=== PATIENT | female | born 1995 | race Caucasian/White ===

== ENCOUNTER 2016-12-27 10:05 | Emergency (ER) | payer SELFPAY ==
[~2016-12-27] VITALS: Ht 162.6 cm; Wt 43.0 kg
[2016-12-27 11:09] LABS: HEMATOCRIT 35.1 % (36.0-46.0); MCHC 32.8 G/DL (30.0-36.0); MCV 85.4 FL (83-99); MEAN PLAT.VOLUME 10.1 uM^3 (9.5-12.4); PLATELET COUNT 187 K/uL (156-360); RBC DIS.WIDTH-CV 14.4 % (11.8-14.6); RBC DIS.WIDTH-SD 45.1 % (39-53); RED BLOOD COUNT 4.11 M/uL (3.80-5.20); WHITE BLOOD COUNT 6.2 K/uL (4.1-10.2)
[2016-12-27 11:22] LABS: CHLORIDE 104 mEq/L (99-109); POTASSIUM 3.8 mEq/L (3.7-5.4); SODIUM 139 mEq/L (136-147)
[2016-12-27 11:24] LABS: GLUCOSE 90 mg/dL (70-99)
[2016-12-27 11:26] LABS: ANION GAP 12 MEQ/L (2-14); TOTAL BILIRUBIN 0.6 mg/dL (0.0-1.0)
[2016-12-27 11:28] LABS: ALKALINE PHOSPHATASE 79 IU/L (3-129); GFR ESTIMATE (CALCULATED) > 59 mL/min/
[2016-12-27 11:29] LABS: UREA NITROGEN (BUN) 14 mg/dL (9-23)
[2016-12-27 11:31] LABS: LIPASE 14 U/L (1.0-51.0)
[2016-12-27 11:38] LABS: QUANTITATIVE HCG < 4.0 MIU/ML
[2016-12-27 12:46] LABS: ADD MIUA? YES; BILIRUBIN NEGATIVE; BLOOD NEGATIVE; COLOR YELLOW ((YELLOW)); GLUCOSE (STRIP) NEGATIVE; KETONES 5; LEUKOCYTES NEGATIVE; NITRITE NEGATIVE; PROTEIN (STRIP) 30; SPECIFIC GRAVITY 1.025 (1.000-1.030)
[2016-12-27] MEDS ORDERED: ULTRAM50 MG PO (12:48)
[2016-12-27] MEDS ORDERED: ZOFRAN ODT4 MG PO (12:48)
[2016-12-27 12:52] LABS: BACTERIA RARE /HPF; CALCIUM OXALATE CRYSTALS 2+ /HPF; EPITHELIAL CELLS 1+ /HPF; MUCUS 1+ /LPF; RED BLOOD CELLS 0-5 /HPF (0-5)
[2016-12-27 13:17] VITALS: BP 99/59
== END 2016-12-27 13:18 | disposition home or self-care (01) ==
LOC: EME 10:05
PROVIDERS: Nurse Practitioner Family
DX: N83.201 Unspecified ovarian cyst, right side (principal); R11.2 Nausea with vomiting, unspecified; L50.0 Allergic urticaria; T50.8X5A Adverse effect of diagnostic agents, initial encounter; F17.200 Nicotine dependence, unspecified, uncomplicated
CPT/HCPCS: 74177; 80053; 81003; 83690; 84702; 85027; 99281; 99285; J1200; J2270; J2405; J7030

== ENCOUNTER 2017-11-07 15:13 | Emergency (ER) | payer SELFPAY ==
[~2017-11-07] VITALS: Ht 162.6 cm; Wt 44.6 kg
[~2017-11-07 15:13] MED LIST: ULTRAM50 MG PO; ZOFRAN ODT4 MG PO
[2017-11-07 16:58] LABS: HEMATOCRIT 39.9 % (36.0-46.0); HEMOGLOBIN 13.6 G/DL (11.9-15.5); MCH 29.6 PG (29.0-34.0); MCHC 34.1 G/DL (30.0-36.0); MCV 86.9 FL (83-99); PLATELET COUNT 234 K/uL (156-360); RBC DIS.WIDTH-CV 13.2 % (11.8-14.6); RBC DIS.WIDTH-SD 41.8 % (39-53); RED BLOOD COUNT 4.59 M/uL (3.80-5.20)
[2017-11-07 17:07] LABS: CHLORIDE 106 mEq/L (99-109); POTASSIUM 3.9 mEq/L (3.7-5.4); SODIUM 139 mEq/L (136-147)
[2017-11-07 17:08] LABS: GLUCOSE 79 mg/dL (70-99)
[2017-11-07 17:12] LABS: CREATININE 0.9 mg/dL (0.6-1.3); GFR ESTIMATE (CALCULATED) > 59 mL/min/
[2017-11-07 17:13] LABS: UREA NITROGEN (BUN) 20 mg/dL (9-23)
[2017-11-07 17:20] LABS: QUANTITATIVE HCG < 4.0 MIU/ML
[2017-11-07 18:12] LABS: THYROTROPIN (TSH) 1.2 MIU/L (0.4-5.5)
[2017-11-07 18:30] VITALS: BP 100/55
== END 2017-11-07 18:31 | disposition home or self-care (01) ==
LOC: EME 15:13
PROVIDERS: Physician Assistant
DX: R00.2 Palpitations (principal); F17.210 Nicotine dependence, cigarettes, uncomplicated; F12.90 Cannabis use, unspecified, uncomplicated; F41.0 Panic disorder [episodic paroxysmal anxiety]
CPT/HCPCS: 71046; 80048; 84443; 84702; 85027; 93005; 99281; 99285